=== PATIENT | male | born 1990 | race Caucasian/White ===

== ENCOUNTER 2018-06-17 15:29 | Emergency (ER) | payer BC ==
[2018-06-17] MEDS ORDERED: Diph,Pert(Acell),Tet Vac 0.5 ML SYR IM ONE (15:39)
--- NOTE | 2018-06-17 16:05 | Emergency Department Record ---
History of Present Illness - General Chief Complaint: Laceration(s) Stated Complaint: RT THUMB LAC Time Seen by Provider: 06/17/18 15:38 Source: Patient Mode of Arrival: Ambulatory Limitations: No limitations - History of Present Illness Initial Commments: The patient cut his R thumb on a grinding wheel about an hour ago. He denies any numbness or tingling. His Td is not UTD. Onset/Timin -: Hour(s) Place: Home Context: Accidental - [place] Coma Scale Eye Response: (4) Open spontaneously Motor Response: (6) Obeys commands Verbal Response: (5) Oriented Blossom Total: 15 - Related Data Patient Tetanus UTD (within 5 yrs): No Previous Rx's Medication Instructions Recorded Cephalexin [Keflex] 500 mg PO QID #20 cap 06/17/18 Allergies Allergy/AdvReac Type Severity Reaction Status Date / Time No Known Drug Allergies Allergy Verified 06/17/18 15:38 Travel Screening - Travel/Exposure Within Last 30 Days Have you traveled within the last 30 days?: No - Travel/Exposure Within Last Year Have you traveled outside the [place] in the last year?: No - Additonal Travel Details Have you been exposed to anyone with a communicable illness?: No - Travel Symptoms Symptom Screening: None Review of Systems Constitutional: Denies: Chills, Fever Past Medical History - SOCIAL HISTORY Smoking Status: Current every day smoker Alcohol Use: Occasional Drug Use: None - RESPIRATORY Hx Respiratory Disorders: No - CARDIOVASCULAR Hx Cardio Disorders: No - NEURO Hx Neuro Disorders: No - GI Hx GI Disorders: No - Hx Genitourinary Disorders: No - ENDOCRINE Hx Endocrine Disorders: No - MUSCULOSKELETAL Hx Musculoskeletal Disorders: No - PSYCH Hx Psych Problems: No - HEMATOLOGY/ONCOLOGY Hx Hematology/Oncology Disorders: No Family Medical History Any Significant Family History?: Yes Physical Exam - General General Appearance: Alert, Oriented x3, Cooperative, No acute distress - Head Head exam: Atraumatic - Eye Eye exam: Normal appearance - Extremities Extremities exam: negative: Normal inspection (There is a 1.4 cm lac to the R mid thumb radial surface near the DIP joint. The R thumb is NVI distally with normal tendon function and normal sensation to light touch and pin prick. ) Image of Hand: 1 - 1.4 cm lac. Course Vital Signs 06/17/18 15:31 Temperature 98.3 F Pulse Rate 74 Respiratory 16 Rate Blood Pressure 137/92 Pulse Ox 98 - Reevaluation(s) Reevaluation #1: Procedure note: The R thumb was anesth. with 1 cc Liso 1%. The wound was cleansed with betadine and lavaged with sterile saline. The wound was explored and no FB was found. The lac was then closed with 4 4.0 nylon sutures. There were no complications. 06/17/18 16:03 Disposition Disposition: Discharge Clinical Impression: Thumb laceration Qualifiers: Encounter type: initial encounter Damage to nail status: without damage Foreign body presence: without foreign body Laterality: right Qualified Code(s) : S61.011A - Laceration without foreign body of right thumb without damage to nail, initial encounter Disposition: Home, Self-Care Condition: (2) Stable Instructions: Laceration (ED) Additional Instructions: Please take the Keflex as directed and keep the thumb dressing in place and dry for 2 days. Please use Tylenol or Motrin for pain and no soaking or swimming until the sutures come out. Have the sutures removed in 10 days. Return to the ER for any signs of infection. Prescriptions: Cephalexin [Keflex] 500 mg PO QID #20 cap Forms: Patient Portal Access Time of Disposition: 16:13 Quality - Quality Measures Quality Measures: N/A - Blood Pressure Screening View Details: Yes Does Patient Have Any of the Following: No Blood Pressure Classification: Hypertensive Reading Systolic Measurement: 137 Diastolic Measurement: 92 Screening for High Blood Pressure: < First Hypertensive BP, F/U Documented > [ G8950] First Hypertensive Follow-up Interventions: Referral to alternative/primary care provider.
[2018-06-17] MEDS ORDERED: CEPHALEXIN 500 MG CAPSULE PO STA (16:11)
== END 2018-06-17 16:33 | disposition home or self-care (01) ==
LOC: ER 15:29
DX: S61.011A Laceration without foreign body of right thumb without damage to nail, initial encounter (principal); W31.1XXA Contact with metalworking machines, initial encounter; Y92.009 Unspecified place in unspecified non-institutional (private) residence as the place of occurrence of the external cause
CPT/HCPCS: 12001; 90715; 96372; 99283

== ENCOUNTER 2018-06-23 22:00 | Emergency (ER) | payer SELFPAY ==
--- NOTE | 2018-06-23 22:17 | Emergency Department Record ---
History of Present Illness - General Chief complaint: Extremity Problem Stated complaint: NAIL IN FINGER Time Seen by Provider: 06/23/18 22:06 Source: Patient Mode of Arrival: Ambulatory Limitations: No limitations - History of Present Illness Initial comments: 28 yo male presents to ED for evaluation following injury to the left middle finger. Patient was using a nail-gun at home when a nail was discharged through the distal aspect of the left middle digit. Patient reports injury occurred approximately 40 minutes ago, denies other injury on examination. Patient denies health problems at his baseline, and reports tetanus is UTD (1 week ago). MD Complaint: Other (Finger injury) Onset/Timin -: Minutes(s) Location: Left, Hand History of Same: No -: Yes Arthralgia Radiation: Distal Quality: Aching Consistency: Constant Improves with: Nothing Worsens with: Other (Movement) Associated Symptoms: Denies other symptoms - Related Data Previous Rx's Medication Instructions Recorded Cephalexin [Keflex] 500 mg PO QID #20 cap 06/17/18 Cephalexin [Keflex] 500 mg PO QID #28 cap 06/23/18 Allergies Allergy/AdvReac Type Severity Reaction Status Date / Time No Known Drug Allergies Allergy Verified 06/17/18 15:38 Review of Systems Constitutional: Denies: Chills, Fever, Malaise, Night sweats Eyes: Denies: Eye discharge, Eye pain ENT: Denies: Congestion, Ear pain, Epistaxis Respiratory: Denies: Cough, Dyspnea Cardiovascular: Denies: Chest pain, Dyspnea on exertion Endocrine: Denies: Fatigue, Heat or cold intolerance Gastrointestinal: Denies: Abdominal pain, Nausea, Vomiting Genitourinary: Denies: Incontinence, Retention Musculoskeletal: Reports: Arthralgia. Denies: Back pain, Gout, Joint swelling Skin: Denies: Bruising, Change in color Neurological: Denies: Abnormal gait, Confusion, Headache, Seizure Psychiatric: Denies: Anxiety Hematological/Lymphatic: Denies: Anemia, Blood Clots Past Medical History - SOCIAL HISTORY Smoking Status: Current every day smoker Drug Use: None - RESPIRATORY Hx Respiratory Disorders: No - CARDIOVASCULAR Hx Cardio Disorders: No - NEURO Hx Neuro Disorders: No - GI Hx GI Disorders: No - Hx Genitourinary Disorders: No - ENDOCRINE Hx Endocrine Disorders: No - MUSCULOSKELETAL Hx Musculoskeletal Disorders: No - PSYCH Hx Psych Problems: No - HEMATOLOGY/ONCOLOGY Hx Hematology/Oncology Disorders: No Physical Exam - General General Appearance: Alert, Oriented x3, Cooperative, Mild distress Limitations: No limitations - Head Head exam: Atraumatic, Normocephalic, Normal inspection Head exam detail: negative: Abrasion, Contusion, Jimenez's sign, General tenderness, Hematoma, Laceration - Eye Eye exam: Normal appearance. negative: Conjunctival injection, Periorbital swelling, Periorbital tenderness, Scleral icterus - ENT Ear exam: negative: Auricular hematoma, Auricular trauma Nasal Exam: negative: Active bleeding, Discharge, Dried blood, Foreign body Mouth exam: negative: Drooling, Laceration, Muffled voice, Tongue elevation - Neck Neck exam: Normal inspection. negative: Meningismus, Tenderness - Respiratory Respiratory exam: Normal lung sounds bilaterally. negative: Rales, Respiratory distress, Rhonchi, Stridor - Cardiovascular Cardiovascular Exam: Regular rate, Normal rhythm, Normal heart sounds - GI/Abdominal GI/Abdominal exam: Soft. negative: Rebound, Rigid, Tenderness - Rectal Rectal exam: Deferred - exam: Deferred - Extremities Extremities exam: Tenderness, Other (Metallic nail is present entering the dorsal aspect of the distal aspect of kevin left middle finger, exits the through the medial aspect of the same digit.). negative: Calf tenderness, Pedal edema - Back Back exam: Denies: CVA tenderness (R), CVA tenderness (L) - Neurological Neurological exam: Alert, Normal gait, Oriented X3 - Psychiatric Psychiatric exam: Normal affect, Normal mood - Skin Skin exam: Normal color. negative: Abrasion Type of lesion: negative: abrasion Course Vital Signs 06/23/18 22:04 Temperature 98.5 F Pulse Rate [ 73 Pulse Ox Probe] Respiratory 20 Rate Blood Pressure 135/84 [Right Arm] Pulse Ox 97 - Reevaluation(s) Reevaluation #1: 06/23/18 22:23 Following digital block, metallic FB was removed using traction/counter-traction without complications. Will clean the wound thoroughly, perform radiograph to exclude acute fracture. Reevaluation #2: 06/23/18 22:44 Left middle finger: No evidence for fracture/retained FB Patient was updated on his radiograph results, puncture wounds were irrigated extensively with 1000 mL sterile saline. Will continue the patient's current Keflex prescription. Indications for return to ED including increased pain, redness, discharge, or fever were discussed, patient verbalizes understanding of all instructions. Patient appears stable for discharge at this time. Procedures - Nerve Block Consent Obtained: Verbal consent Time Out Performed: Yes Local Anesthetic Used: Lidocaine 1% Amount of anesthesia used: 2.5 (mL) Side: Left Nerve Blocks: Digital Procedure Successful: Yes Complications: None Patient Tolerated Procedure: Good Disposition Disposition: Discharge Clinical Impression: Finger injury Qualifiers: Encounter type: initial encounter Laterality: left Qualified Code(s): S69.92XA - Unspecified injury of left wrist, hand and finger(s), initial encounter Foreign body of finger of left hand Qualifiers: Encounter type: initial encounter Qualified Code(s): S60.459A - Superficial foreign body of unspecified finger, initial encounter Disposition: Home, Self-Care Condition: (2) Stable Instructions: Soft Tissue Foreign Body (ED) Additional Instructions: Return to ED if your symptoms worsen or if you have any concerns. Keflex as directed. Follow-up with your family doctor in 3-5 days as directed. Prescriptions: Cephalexin [Keflex] 500 mg PO QID #28 cap Forms: Patient Portal Access Time of Disposition: 22:47 Quality - Quality Measures Quality Measures: N/A - Blood Pressure Screening Does Patient Have Any of the Following: No Blood Pressure Classification: Pre-Hypertensive BP Reading Systolic Measurement: 135 Diastolic Measurement: 84 Screening for High Blood Pressure: < Pre-Hypertensive BP, F/U Documented > [G8950] Pre-Hypertensive Follow-up Interventions: Referral to alternative/primary care provider.
--- NOTE | 2018-06-25 08:00 | RADIOLOGY REPORT ---
EXAM: LEFT THIRD DIGIT, THREE VIEWS HISTORY: PATIENT HAS INJURY TO THE LEFT THIRD DIGIT. TECHNIQUE: Three views of the left third digit are provided along with the comparison study dated 12/05/08. FINDINGS: There is no radiographic evidence of a fracture or dislocation of the left third digit. Mild soft tissue swelling is noted. No radiopaque foreign bodies are identified. IMPRESSION: SOFT TISSUE SWELLING IS NOTED OVER THE LEFT THIRD DIGIT WITHOUT RADIOGRAPHIC EVIDENCE OF A FRACTURE, DISLOCATION, OR RADIOPAQUE FOREIGN BODY. JOB NUMBER: [id number] [facility]
== END 2018-06-23 22:58 | disposition home or self-care (01) ==
LOC: ER 22:00
DX: S60.453A Superficial foreign body of left middle finger, initial encounter (principal); W29.4XXA Contact with nail gun, initial encounter; Y92.009 Unspecified place in unspecified non-institutional (private) residence as the place of occurrence of the external cause; F17.210 Nicotine dependence, cigarettes, uncomplicated
CPT/HCPCS: 64450; 73140; 99283; 99284